=== PATIENT | male | born 1970 | race African-American/Black ===

== ENCOUNTER 2019-05-28 18:08 | Emergency (ER) | payer OTHER ==
[2019-05-28] MEDS: IBUPROFEN 800 MG TAB PO (18:50)
== END 2019-05-28 19:42 | disposition home or self-care (01) ==
LOC: FTE 18:08
DX: M25.522 Pain in left elbow (principal); Z87.891 Personal history of nicotine dependence
CPT/HCPCS: 73080; 73080-LT; 99283-25